=== PATIENT | female | born 1960 | race Asian ===

== ENCOUNTER 2016-08-30 11:45 | Emergency (ER) | payer OTHER ==
[~2016-08-30] VITALS: Ht 162.6 cm; Wt 87.5 kg
[2016-08-30 14:52] VITALS: BP 142/75; TEMP 98
== END 2016-08-30 14:52 | disposition home or self-care (01) ==
LOC: ED 11:45
DX: T63.2X1A Toxic effect of venom of scorpion, accidental (unintentional), initial encounter (principal); X58.XXXA Exposure to other specified factors, initial encounter; Y92.098 Other place in other non-institutional residence as the place of occurrence of the external cause
CPT/HCPCS: 36415; 36600; 82805; 99283; J0171; J2930

== ENCOUNTER 2017-03-19 09:28 | Emergency (ER) | payer OTHER ==
[~2017-03-19] VITALS: Ht 162.6 cm; Wt 86.2 kg
[2017-03-19 09:33] VITALS: TEMP 98.2
[2017-03-19] MEDS ORDERED: HYDR10TA47 PO (09:47)
[2017-03-19] MEDS ORDERED: XANAX XR2 MG OR (09:48)
[2017-03-19] MEDS ORDERED: CYCL10TA35 PO (09:49)
[2017-03-19 11:55] VITALS: BP 104/66
== END 2017-03-19 11:56 | disposition home or self-care (01) ==
LOC: ED 09:28
DX: M54.31 Sciatica, right side (principal); S39.012A Strain of muscle, fascia and tendon of lower back, initial encounter; M54.5 Low back pain; Y04.2XXA Assault by strike against or bumped into by another person, initial encounter; Y92.098 Other place in other non-institutional residence as the place of occurrence of the external cause
CPT/HCPCS: 96372; 99283; J1100; J1885; J2360

== ENCOUNTER 2017-11-20 08:48 | Emergency (ER) | payer OTHER ==
[~2017-11-20] VITALS: Ht 160 cm; Wt 89.8 kg
[~2017-11-20 08:48] MED LIST: CYCL10TA35 PO; HYDR10TA47 PO; XANAX XR2 MG OR
[2017-11-20 08:58] VITALS: TEMP 98.1
[2017-11-20 09:38] LABS: PLATELET COUNT 291 K/uL (152-353)
[2017-11-20 09:47] LABS: POTASSIUM 3.6 mmol/L (3.6-5.2)
[2017-11-20 12:00] VITALS: BP 150/70
== END 2017-11-20 12:20 | disposition home or self-care (01) ==
LOC: ED 08:48
PROVIDERS: Family Medicine
DX: K59.09 Other constipation (principal); K21.9 Gastro-esophageal reflux disease without esophagitis; R91.1 Solitary pulmonary nodule
CPT/HCPCS: 36415; 80053; 81000; 85027; 99283

== ENCOUNTER 2017-11-26 15:20 | Outpatient (CLI) | payer OTHER ==
[2017-11-26 15:57] LABS: PLATELET COUNT 298 K/uL (152-353)
[2017-11-26 16:01] LABS: POTASSIUM 4.1 mmol/L (3.6-5.2)
== END 2017-11-26 23:59 | disposition home or self-care (01) ==
LOC: LAB 15:20
PROVIDERS: Nurse Practitioner Family
DX: Z00.00 Encounter for general adult medical examination without abnormal findings (principal); R53.83 Other fatigue; R53.81 Other malaise; E55.9 Vitamin D deficiency, unspecified; Z79.899 Other long term (current) drug therapy
CPT/HCPCS: 80053; 80061; 82306; 83036; 84436; 84443; 85027

== ENCOUNTER 2020-08-27 20:47 | Emergency (ER) | payer OTHER ==
[~2020-08-27] VITALS: Ht 160 cm; Wt 90.7 kg
[2020-08-27 22:05] VITALS: BP 148/85; TEMP 98.5
== END 2020-08-27 22:11 | disposition home or self-care (01) ==
LOC: ED 20:47
DX: H10.89 Other conjunctivitis (principal)
CPT/HCPCS: 99283

== ENCOUNTER 2021-12-19 07:23 | Emergency (ER) | payer OTHER ==
[~2021-12-19] VITALS: Ht 160 cm; Wt 90.7 kg
[2021-12-19 07:27] VITALS: TEMP 98.3
[2021-12-19 08:03] LABS: PLATELET COUNT 229 K/uL (152-353)
[2021-12-19 08:09] LABS: POTASSIUM 3.2 mmol/L (3.6-5.2)
[2021-12-19 11:12] VITALS: BP 140/81
== END 2021-12-19 11:13 | disposition home or self-care (01) ==
LOC: ED 07:23
PROVIDERS: Emergency Medicine Emergency Medical Services
DX: K52.89 Other specified noninfective gastroenteritis and colitis (principal); H83.03 Labyrinthitis, bilateral
CPT/HCPCS: 36415; 80053; 81000; 84484; 85027; 93005; 96360; 96361; 99284; J2405

== ENCOUNTER 2022-05-23 13:25 | Emergency (ER) | payer OTHER ==
[~2022-05-23] VITALS: Ht 160 cm; Wt 81.6 kg
[2022-05-23 13:28] VITALS: TEMP 99.7
[2022-05-23 14:08] LABS: PLATELET COUNT 217 K/uL (152-353)
[2022-05-23 14:12] LABS: POTASSIUM 3.8 mmol/L (3.6-5.2)
[2022-05-23 15:09] VITALS: BP 152/78
== END 2022-05-23 15:09 | disposition home or self-care (01) ==
LOC: ED 13:25
PROVIDERS: Emergency Medicine
DX: J10.1 Influenza due to other identified influenza virus with other respiratory manifestations (principal); Z20.822 Contact with and (suspected) exposure to COVID-19; Z98.818 Other dental procedure status
CPT/HCPCS: 80048; 85027; 87502; 87635; 99283; U0001

== ENCOUNTER 2022-05-28 11:50 | Outpatient (CLI) | payer OTHER | END 2022-05-28 19:38 | disposition home or self-care (01) | LOC: RAD 11:50 | PROVIDERS: ATTEND Family Medicine | DX: R06.09 Other forms of dyspnea (principal); J11.1 Influenza due to unidentified influenza virus with other respiratory manifestations ==